=== PATIENT | male | born 1945 | race Caucasian/White ===

== ENCOUNTER → 2016-04-20 | Outpatient (CLI) | payer OTHER, MEDICARE ==
--- NOTE | 2016-04-20 14:01 | MR ---
MRI of the Left Shoulder History: Left shoulder reconstruction with rotator cuff tendon repair. Shoulder pain. Technique: Axial proton density, oblique coronal, and sagittal T1 and T2 sequences were acquired. Findings: Postsurgical changes of a rotator cuff tendon reconstruction are identified with metallic s uture anchors present in the greater tuberosity. There is a recurrent full-thickness rotator cuff ten don tear involving the distal fibers of supraspinatus tendon proximal to the stump reconstruction. Th is tear measures 15 mm AP dimensions and is retracted x 15 mm and is located just past the myotendino us junction and proximal to the intact distal fibers of the reconstruction at the greater tuberosity. A little more posteriorly, fusiform infraspinatus tendinosis is present with mild undersurface parti al tear and fluid tracking proximally toward the myotendinous junction where an intramuscular cyst is present. Subscapularis is markedly thinned distally compatible with high-grade partial tear. There is also sub luxation of a diseased long head biceps tendon out of the bicipital tubercle into the subscapularis p artial defect, the biceps tendon perched on the bicipital tubercle. Marked biceps tendinosis. Teres m inor is intact. No displaced glenoid labral tear. Periarticular cartilage of the glenohumeral joint is intact. Acromioclavicular joint is mildly degenerative with capsular thickening and edema superiorly. Impressions 1. Status post rotator cuff tendon reconstruction. There is evidence of a recurrent full-thickness te ar of the distal fibers of supraspinatus proximal to the greater tuberosity reconstruction, measuring 15 x 15 mm. 2. Fusiform infraspinatus tendinosis with mild undersurface partial tear and intramuscular cyst proxi judd. 3. High-grade partial tear of subscapularis, associated with subluxation of a diseased long head hermelinda ps tendon on to the bicipital tubercle through this partial subscapularis defect.
== END ==
LOC: FIMAGING 09:04
PROVIDERS: ATTEND Orthopaedic Surgery
DX: M75.102 Unspecified rotator cuff tear or rupture of left shoulder, not specified as traumatic (principal)

== ENCOUNTER → 2016-09-08 | Outpatient (CLI) | payer OTHER, MEDICARE | LOC: FIMAGING 16:15 | PROVIDERS: ATTEND Orthopaedic Surgery | DX: R22.42 Localized swelling, mass and lump, left lower limb (principal) ==

== ENCOUNTER 2017-01-13 15:41 | Observation (INO) | payer OTHER, MEDICARE ==
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
[2017-01-13 16:32] LABS: % IMMATURE GRANULYOCYTES 1.2 % (0.0-1.1); ADD DIFF? NO; ADD MORPH? NO; ADD SCAN? NO; ATYPICAL LYMPHOCYTE FLAG 10 (0-99); FRAGMENT RBC FLAG 0 (0-99); HEMATOCRIT 44.3 % (40.0-51.0); HEMOGLOBIN 15.1 g/dL (13.7-17.5); LEFT SHIFT FLG 10 (0-99); LIPEMIA HEMOLYSIS FLAG 90 (0-99); MEAN CELL HEMOGLOBIN 30.6 pg (27.9-34.1); MEAN CELL HEMOGLOBIN CONCENTR. 34.1 g/dL (32.4-36.7); MEAN CELL VOLUME 89.9 fL (81.5-99.8); MEAN PLATELET VOLUME 10.6 fL (8.7-11.7); PLATELET CLUMPS FLAG 10 (0-99); PLATELET COUNT 171 10^3/uL (150-400); RED BLOOD CELL COUNT 4.93 10^6/uL (4.40-6.38); RED CELL DISTRIBUTION WIDTH 15.9 % (11.5-15.2)
[2017-01-13 16:40] LABS: ANION GAP 18 mEq/L (8-16); CALCIUM 9.9 mg/dL (8.5-10.4); CARBON DIOXIDE 20 mEq/l (22-31); CHLORIDE 99 mEq/L (97-110); GLOMERULAR FILTRATION RATE > 60; GLUCOSE 243 mg/dL (70-100); POTASSIUM 4.1 mEq/L (3.5-5.2); SODIUM 137 mEq/L (134-144)
--- NOTE | 2017-01-13 16:45 | CPEKG ---
Heart Rate: 92 RR Interval: 652 QRSD Interval: 104 QT Interval: 392 QTC Interval: 485 QRS Branford: 63 T Wave Branford: 263 EKG Severity - ABNORMAL ECG - EKG Impression: ATRIAL FIBRILLATION, V-RATE 49-81 EKG Impression: VENTRICULAR BIGEMINY EKG Impression: REPOL ABNRM, PROBABLE ISCHEMIA, DIFFUSE LEADS Electronically Signed By: Sravanthi Sousa 13-Jan-2017 21:53:44
[2017-01-13 16:50] LABS: INR 1.4 (0.83-1.16); PROTIME(PATIENT) 17.1 SEC (12.0-15.0)
[2017-01-13 16:51] LABS: APTT 49.2 SEC (23.0-38.0)
[2017-01-13] MEDS: levETIRAcetam 500 MG TAB PO SCH ×2 (17:17→22:12)
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
[2017-01-13] MEDS ORDERED: HYDROCODONE/APAP 5/325 TAB PO PRN (21:27)
[2017-01-13] MEDS ORDERED: ONDANSETRON 4 MG/2 ML VIAL IVP PRN (21:27)
[2017-01-13] MEDS ORDERED: HYDROmorphONE/DILAUDID 1 MG/ML INJ IVP PRN (21:27)
[2017-01-13] MEDS ORDERED: DIAZEPAM 5 MG TAB PO PRN (21:28)
[2017-01-13] MEDS ORDERED: D5W 1/2 NS W/ 20 KCl/L 1,000 ML IV SCH (21:30)
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
[2017-01-13] MEDS ORDERED: TAMSULOSIN HCL 0.4 MG CAP PO SCH (22:15)
[2017-01-14] MEDS ORDERED: ACETAMINOPHEN 325 MG TAB ONE (04:46)
[2017-01-14 06:15] LABS: ABSOLUTE IMMATURE GRANULOCYTES 0.09 10^3/uL (0.00-0.10); ADD DIFF? NO; ADD MORPH? NO; ADD SCAN? NO; ATYPICAL LYMPHOCYTE FLAG 0 (0-99); FRAGMENT RBC FLAG 0 (0-99); HEMATOCRIT 39.8 % (40.0-51.0); HEMOGLOBIN 13.6 g/dL (13.7-17.5); LEFT SHIFT FLG 10 (0-99); LIPEMIA HEMOLYSIS FLAG 90 (0-99); MEAN CELL HEMOGLOBIN 31.3 pg (27.9-34.1); MEAN CELL HEMOGLOBIN CONCENTR. 34.2 g/dL (32.4-36.7); MEAN CELL VOLUME 91.5 fL (81.5-99.8); PLATELET CLUMPS FLAG 0 (0-99); PLATELET COUNT 150 10^3/uL (150-400); RED BLOOD CELL COUNT 4.35 10^6/uL (4.40-6.38); RED CELL DISTRIBUTION WIDTH 15.9 % (11.5-15.2)
[2017-01-14 06:24] LABS: INR 1.19 (0.83-1.16); PROTIME(PATIENT) 15.1 SEC (12.0-15.0)
[2017-01-14 08:27] VITALS: TEMP 98.1
[2017-01-14] MEDS ORDERED: SAXAGLIPTIN HCL PO SCH (09:00)
[2017-01-14] MEDS ORDERED: PANTOPRAZOLE SODIUM 40 MG TAB PO SCH (09:00)
[2017-01-14] MEDS ORDERED: CHOLECALCIFEROL VIT D3 1,000 UNITS TAB PO SCH (09:00)
[2017-01-14] MEDS ORDERED: ALLOPURINOL 300 MG TAB PO SCH (09:00)
[2017-01-14] MEDS ORDERED: ASPIRIN 81 MG CHEWABLE TAB PO SCH (09:00)
[2017-01-14] MEDS ORDERED: Canagliflozin [Invokana] 300 MG PO SCH (09:00)
[2017-01-14] MEDS ORDERED: LISINOPRIL/HCTZ 20/12.5MG 1 EA TAB PO SCH (09:00)
[2017-01-14] MEDS ORDERED: METFORMIN HCL PO SCH (09:00)
[2017-01-14] MEDS ORDERED: FLU VACC QS 2017-18 (3YR+)/PF 0.5 ML SYR (FLUARIX QUAD) IM ONE (09:01)
[2017-01-14] MEDS: levETIRAcetam 500 MG TAB PO SCH (09:27)
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
--- NOTE | 2017-01-14 11:49 | ASMTCMCOM ---
CM Note CM Note Notes: Chart reviewed. Patient discussed in rounds, Per OT okay to dc home to the care of family. PT pending. No current needs identified. CM available should needs arise. Date Signed: 01/14/2017 11:48 AM Electronically Signed By:Alejandra Plunkett RN
[2017-01-14 12:26] VITALS: BP 134/87; PULSE 73; RESP 20; O2SAT 95
[2017-01-14] MEDS ORDERED: EZETIMIBE 10 MG TAB PO SCH (21:00)
[2017-01-14] MEDS ORDERED: DULoxetine 30 MG CAP PO SCH (21:00)
[2017-01-14] MEDS ORDERED: ATORVASTATIN CALCIUM 20 MG TAB PO SCH (21:00)
[2017-01-14] MEDS ORDERED: GABAPENTIN 300 MG CAP PO SCH (21:00)
[2017-01-14] MEDS ORDERED: TEMAZEPAM 15 MG CAP PO SCH (21:00)
[2017-01-14] MEDS ORDERED: Ibuprofen/Diphenhydramine Cit [Advil Pm Caplet] PO SCH (21:00)
== END 2017-01-14 14:29 | disposition home or self-care (01) ==
LOC: EDUNIT# → INTOOBSV 16:29 → UNDOADMOB 16:29 → F2N 19:35 → UNDODISOB 01-14 14:29
PROVIDERS: ADMIT Surgery; ATTEND Surgery
DX: S06.5X0A Traumatic subdural hemorrhage without loss of consciousness, initial encounter (principal); S00.01XA Abrasion of scalp, initial encounter; V00.831A Fall from motorized mobility scooter, initial encounter; Y92.513 Shop (commercial) as the place of occurrence of the external cause; I48.91 Unspecified atrial fibrillation; Y93.89 Activity, other specified; M54.2 Cervicalgia; M48.02 Spinal stenosis, cervical region; G62.9 Polyneuropathy, unspecified; I10 Essential (primary) hypertension; Z79.82 Long term (current) use of aspirin; Z79.01 Long term (current) use of anticoagulants; Z23 Encounter for immunization; Z98.1 Arthrodesis status; Z95.1 Presence of aortocoronary bypass graft; Z96.643 Presence of artificial hip joint, bilateral
CPT/HCPCS: 70450; 71010; 72125; 72141; 90471; 92523; 93005; 97161; 97165; G0378; G8978; G8979; G8980; G8987; G8988; G8989; G9168; G9169; G9170; G0008; G0390

== ENCOUNTER 2017-05-23 20:05 | Emergency (ER) | payer OTHER, MEDICARE ==
[2017-05-23 20:13] VITALS: RESP 18
[2017-05-23] MEDS ORDERED: NS 1,000 ML IV ONE (20:51)
--- NOTE | 2017-05-23 20:53 | EDPHY ---
H & P Stated Complaint: blood in urine for 2 days Time Seen by Provider: 05/23/17 20:43 HPI/ROS: CHIEF COMPLAINT: Atrial HISTORY OF PRESENT ILLNESS: Patient is a 71-year-old man with a history of kidney stones well as prostatic hypertrophy on Pradaxa for history of atrial fibrillation status post 2 vessel bypass several years ago who comes to the emergency department complaining of hematuria. He states that he had right flank pain earlier today that felt similar to previous kidney stones. He then developed hematuria. His pain however has resolved. He has not had a fever. No dysuria. No nausea vomiting. He states that he now feels fine except that his urine is pink. He was wondering if he should take his Pradaxa tonight. He has required lithotripsy in the past. REVIEW OF SYSTEMS: Constitutional: denies: chills, fever, recent illness, recent injury EENTM: denies: blurred vision, double vision, nose congestion Respiratory: denies: cough, shortness of breath Cardiac: denies: chest pain, irregular heart rate, lightheadedness, palpitations Gastrointestinal/Abdominal: denies: abdominal pain, diarrhea, nausea, vomiting, blood streaked stools Genitourinary: See HPI Musculoskeletal: denies: joint pain, muscle pain Skin: denies: lesions, rash, jaundice, bruising Neurological: denies: headache, numbness, paresthesia, tingling, dizziness, weakness Hematologic/Lymphatic: denies: blood clots, easy bleeding, easy bruising Immunologic/allergic: denies: HIV/AIDS, transplant EXAM: GENERAL: Well-appearing, obese and in no acute distress. HEAD: Atraumatic, normocephalic. EYES: Pupils equal round and reactive to light, extraocular movements intact, sclera anicteric, conjunctiva are normal. ENT: TMs normal, nares patent, oropharynx clear without exudates. Moist mucous membranes. NECK: Normal range of motion, supple without lymphadenopathy or JVD. LUNGS: Breath sounds clear to auscultation bilaterally and equal. No wheezes rales or rhonchi. HEART: Regular rate and rhythm without murmurs, rubs or gallops. ABDOMEN: Soft, nontender, normoactive bowel sounds. No guarding, no rebound. No masses appreciated. BACK: No CVA tenderness, no spinal tenderness, step-offs or deformities EXTREMITIES: Normal range of motion, no pitting or edema. No clubbing or cyanosis. NEUROLOGICAL: Cranial nerves II through XII grossly intact. Normal speech, normal gait. 5/5 strength, normal movement in all extremities, normal sensation PSYCH: Normal mood, normal affect. SKIN: Warm, dry, normal turgor, no visible rashes or lesions. Source: Patient Exam Limitations: No limitations - Personal History Current Tetanus/Diphtheria Vaccine: Yes Current Tetanus Diphtheria and Acellular Pertussis (TDAP): Yes - Medical/Surgical History Hx Asthma: No Hx Chronic Respiratory Disease: No Hx Diabetes: Yes Hx Cardiac Disease: Yes Hx Renal Disease: No Hx Cirrhosis: No Hx Alcoholism: No Hx HIV/AIDS: No Hx Splenectomy or Spleen Trauma: No Other PMH: cardiac bypass, mansi hip replacement, knee replace, enzo, kidney stones, hernia, three bones removed from r foot, dm, htn, pradaxa blood for a.fib., back fusion - Family History Significant Family History: No pertinent family hx - Social History Smoking Status: Never smoked Alcohol Use: Sober Drug Use: None Constitutional: Initial Vital Signs Temperature (C) 36.3 C 05/23/17 20:08 Heart Rate 55 L 05/23/17 20:08 Respiratory Rate 18 05/23/17 20:08 Blood Pressure 178/72 H 05/23/17 20:08 O2 Sat (%) 93 05/23/17 20:08 O2 Delivery Mode Nasal Cannula O2 (L/minute) 2 Allergies/Adverse Reactions: No Known Allergies Allergy (Verified 05/23/17 20:13) Home Medications: Medication Instructions Recorded Allopurinol [Allopurinol 300 MG 300 mg PO DAILY 01/13/17 (RX)] Atorvastatin Calcium [Lipitor 20 20 mg PO HS 01/13/17 mg (*)] Cholecalciferol Vit D3 [Vitamin D3 1,000 units PO DAILY 01/13/17 (*)] Duloxetine HCl 30 mg PO HS 01/13/17 Ezetimibe [Zetia 10 MG (*)] 10 mg PO HS 01/13/17 Gabapentin [Neurontin 300 MG (*)] 600 mg PO HS 01/13/17 Hydrocodone/Acetaminophen [[place] 1 each PO Q4 PRN 01/13/17 5/325 (*)] Ibuprofen/Diphenhydramine Cit 1 each PO HS 01/13/17 [Advil Pm Caplet] Insulin Detemir [Levemir] 26 unit SQ HS 01/13/17 Lisinopril/Hctz 20/12.5MG 1 ea PO DAILY 01/13/17 [Zestoretic/Prinzide 20/12.5MG (*)] Omeprazole [Prilosec 20 mg] 20 mg PO DAILY 01/13/17 Saxagliptin HCl/Metformin HCl 1 each PO BID 01/13/17 [Kombiglyze Xr 2.5-1,000 mg Tab] Tamsulosin HCl [Flomax 0.4 MG (*)] 0.4 mg PO HS 01/13/17 Temazepam 30 mg PO HS 01/13/17 levETIRAcetam [Keppra 500 mg (*)] 750 mg PO BID 7 Days #14 tab 01/14/17 Amoxicillin 05/23/17 Aspirin 05/23/17 Cialis 05/23/17 Diltiazem 05/23/17 Furosemide 05/23/17 Medical Decision Making - Diagnostics Imaging: Discussed imaging studies w/ computer artist Radiologist ED Course/Re-evaluation: 10:00 p.m. we discussed his CT and lab results which are reassuring. Patient and were reassured. He remains pain free. We discussed follow-up as well as indicated returning. Differential Diagnosis: Partial list of the Differential diagnosis considered include but were not limited to; kidney stone, urinary tract infection and although unlikely based on the history and physical exam, I also considered pyelonephritis, sepsis, aneurysm, dissection. I discussed these differential diagnoses and the plan with the patient as well as the usual and expected course. The patient understands that the diagnosis is provisional and that in medicine we are not always correct and that further workup is often warranted. Usual and customary warnings were given. All of the patient's questions were answered. The patient was instructed to return to the emergency department should the symptoms at all worsen or return, otherwise to followup with the physician as we discussed. - Data Points Laboratory Results: Laboratory Results 05/23/17 21:10 05/23/17 21:10 05/23/17 05/23/17 05/23/17 21:10 21:10 20:20 WBC 8.52 10^3/uL 10^3/uL (3.80-9.50) RBC 4.59 10^6/uL 10^6/uL (4.40-6.38) Hgb 13.5 g/dL L g/dL (13.7-17.5) Hct 40.2 % % (40.0-51.0) MCV 87.6 fL fL (81.5-99.8) MCH 29.4 pg pg (27.9-34.1) MCHC 33.6 g/dL g/dL (32.4-36.7) RDW 16.6 % H % (11.5-15.2) Plt Count 180 10^3/uL 10^3/uL (150-400) MPV 10.3 fL fL (8.7-11.7) Neut % (Auto) 72.7 % % (39.3-74.2) Lymph % (Auto) 17.4 % % (15.0-45.0) [place] % (Auto) 7.3 % % (4.5-13.0) Eos % (Auto) 1.4 % % (0.6-7.6) Baso % (Auto) 0.5 % % (0.3-1.7) Nucleat RBC Rel Count 0.0 % % (0.0-0.2) Absolute Neuts (auto) 6.20 10^3/uL 10^3/uL (1.70-6.50) Absolute Lymphs (auto) 1.48 10^3/uL 10^3/uL (1.00-3.00) Absolute Monos (auto) 0.62 10^3/uL 10^3/uL (0.30-0.80) Absolute Eos (auto) 0.12 10^3/uL 10^3/uL (0.03-0.40) Absolute Basos (auto) 0.04 10^3/uL 10^3/uL (0.02-0.10) Absolute Nucleated RBC 0.00 10^3/uL 10^3/uL (0-0.01) Immature Gran % 0.7 % % (0.0-1.1) Immature Gran # 0.06 10^3/uL 10^3/uL (0.00-0.10) Sodium 140 mEq/L mEq/L (135-145) Potassium 3.1 mEq/L L mEq/L (3.5-5.2) Chloride 98 mEq/L mEq/L (97-110) Carbon Dioxide 29 mEq/l mEq/l (22-31) Anion Gap 13 mEq/L mEq/L (8-16) BUN 12 mg/dL mg/dL (7-23) Creatinine 0.7 mg/dL mg/dL (0.7-1.3) Estimated GFR > 60 Glucose 122 mg/dL H mg/dL (70-100) Calcium 9.5 mg/dL mg/dL (8.5-10.4) Total Bilirubin 1.1 mg/dL mg/dL (0.1-1.4) Conjugated Bilirubin 0.2 mg/dL mg/dL (0.0-0.5) Unconjugated Bilirubin 0.9 mg/dL mg/dL (0.0-1.1) AST 14 IU/L L IU/L (17-59) ALT 30 IU/L IU/L (21-72) Alkaline Phosphatase 71 IU/L IU/L (38-126) Total Protein 6.6 g/dL g/dL (6.3-8.2) Albumin 3.9 g/dL g/dL (3.5-5.0) Lipase 32 IU/L IU/L (23-300) Urine Color YELLOW Urine Appearance HAZY Urine pH 6.0 (5.0-7.5) Ur Specific [place] 1.009 (1.002-1.030) Urine Protein 2+ H (NEGATIVE) Urine Ketones NEGATIVE (NEGATIVE) Urine Blood 3+ H (NEGATIVE) Urine Nitrate NEGATIVE (NEGATIVE) Urine Bilirubin NEGATIVE (NEGATIVE) Urine Urobilinogen NEGATIVE EU EU (0.2-1.0) Ur Leukocyte Esterase NEGATIVE (NEGATIVE) Urine RBC 50-182 /hpf H /hpf (0-3) Urine WBC 1-3 /hpf /hpf (0-3) Ur Epithelial Cells NONE SEEN /lpf /lpf (NONE-1+) Urine Mucus TRACE /lpf /lpf (NONE-1+) Urine Glucose NEGATIVE (NEGATIVE) Medications Given: Discontinued Medications Sodium Chloride (Ns) 1,000 mls @ 0 mls/hr IV EDNOW ONE; Wide Open PRN Reason: Protocol Stop: 05/23/17 20:52 Last Admin: 05/23/17 21:09 Dose: 1,000 mls Departure - Departure Disposition: Home, Routine, Self-Care Clinical Impression: Calculus of right kidney Condition: Fair Instructions: Kidney Stones (ED) Referrals: WILLIAMS JONAS [Other] - As per Instructions
[2017-05-23 21:28] LABS: PLATELET COUNT 180 10^3/uL (150-400)
[2017-05-23 22:12] VITALS: BP 159/78; PULSE 46; TEMP 98.1; O2SAT 97
== END 2017-05-23 22:22 | disposition home or self-care (01) ==
DX: N20.0 Calculus of kidney (principal); E11.9 Type 2 diabetes mellitus without complications; I10 Essential (primary) hypertension; E86.9 Volume depletion, unspecified; Z79.4 Long term (current) use of insulin; Z79.82 Long term (current) use of aspirin

== ENCOUNTER → 2017-07-29 | Outpatient (CLI) | payer OTHER, MEDICARE ==
[~2017-07-29] MED LIST: IOPAMIDOL (ISOVUE-300) 100 ML BTL ONE
== END ==
LOC: FIMAGING 13:16
DX: I51.7 Cardiomegaly (principal); J90 Pleural effusion, not elsewhere classified; N28.9 Disorder of kidney and ureter, unspecified; Z90.49 Acquired absence of other specified parts of digestive tract; Z95.5 Presence of coronary angioplasty implant and graft; Z95.1 Presence of aortocoronary bypass graft; R91.8 Other nonspecific abnormal finding of lung field
CPT/HCPCS: 71046; 74178; Q9967

== ENCOUNTER 2017-09-29 10:04 | Emergency (ER) | payer OTHER, MEDICARE ==
--- NOTE | 2017-09-29 10:31 | EDPHY ---
H & P Stated Complaint: L hip pain faLL YEST Time Seen by Provider: 09/29/17 10:16 HPI/ROS: CHIEF COMPLAINT: Left hip pain, head injury post mechanical fall HISTORY OF PRESENT ILLNESS: 71-year-old male arrives via private vehicle with his . He is complaining of left hip pain and inability to bear full weight after he woke up to use the restroom yesterday at 4:00 a.m.. Because of the darkness in his room he leaned against what he thought was a wall however is a door and he fell onto his left side. He also impacted the right side of his head with no loss of consciousness. His was next to him, he was able to stand up and had no prolonged periods of immobility on the floor. He describes this as a mechanical non syncopal episode. He has a baseline unsteady gait, ambulates with a cane, has been able to ambulate albeit with significant pain to the left hip. Denies: Midline C-spine pain, peripheral paresthesia, weakness, numbness, chest pain or trauma, back pain or trauma, abdominal pain or trauma, dyspnea. Last oral intake was 7:00 a.m.today consisting of toast and coffee PRIMARY CARE PROVIDER: Dr. Anh Orozco in [place], [place] REVIEW OF SYSTEMS: A ten point review of systems was performed and is negative with the exception of the items mentioned in the HPI PAST MEDICAL/SURGICAL HISTORY: Daily Pradaxa secondary to atrial fibrillation history. BPH. Multiple orthopedic surgeries all performed in [facility]. SOCIAL HISTORY: . denies alcohol use at time of incident PHYSICAL EXAM 1) GENERAL: Well-developed, well-nourished, alert and oriented. Appears to be in no acute distress. Answering questions appropriately. Smiling. 2) HEAD: Normocephalic, no hematoma. There is faint erythema to the right temporoparietal region with no depression. 3) HEENT: Pupils equal, round, reactive to light bilaterally. Negative [place]. Nasopharynx, oropharynx, clear. No deformity or angulation of nose. No septal hematoma. No rhinorrhea. No oral trauma. Ears bilaterally with normal tympanic membranes. No hemotympanum. No fluid or blood in the external auditory canal. No raccoon eyes. No Rodas sign. Teeth are normally aligned with no gross malocclusion, TMJ bilaterally nontender, facial bones nontender including the zygomatic arch, maxilla mandible. 4) NECK: No cervical collar is on. Posterior cervical spine is nontender, no stepoff, no effusion. Full range of motion which does not elicit any midline cervical spine pain, no posterior midline tenderness, no step-off. 5) LUNGS: Clear to auscultation bilaterally, no wheezes, no rhonchi, no retractions. No obvious signs of trauma. No chest wall pain. No flaring, no grunting. Moving symmetrically. No crepitus. 6) HEART: Regular rate and rhythm, 7) ABDOMEN: No guarding, no rebound, no focal tenderness, no peritoneal signs, no signs of trauma, no ecchymosis 8) MUSCULOSKELETAL: Left lower extremity: Ecchymosis, tenderness to the left greater trochanteric region. No shortening or malrotation. Soft compartments. Left pretibial abrasion with no underlying osseous discomfort and soft compartments. Distal DP PT pulses present and brisk. Otherwise, Moving all extremities, no focal areas of tenderness, no obvious trauma. 9) BACK: No midline vertebral tenderness, no fluctuance, no step-off, no obvious trauma, no visual or palpable abnormality. 10) SKIN: No laceration. DIFFERENTIAL DIAGNOSIS: Not necessarily in any particular order, my differential diagnosis includes, but is not limited to, concussion, skull fracture, intraparenchymal contusion, subarachnoid, subdural and epidural hematoma, hip fracture, dislocation. The patient understands that this diagnosis is provisional and can never be 100% accurate. - Personal History Current Tetanus/Diphtheria Vaccine: Unsure Current Tetanus Diphtheria and Acellular Pertussis (TDAP): Unsure - Medical/Surgical History Hx Asthma: No Hx Chronic Respiratory Disease: No Hx Diabetes: Yes Hx Cardiac Disease: Yes Hx Renal Disease: No Hx Cirrhosis: No Hx Alcoholism: No Hx HIV/AIDS: No Hx Splenectomy or Spleen Trauma: No Other PMH: cardiac bypass, mansi hip replacement, knee replace, enzo, kidney stones, hernia, three bones removed from r foot, dm, htn, pradaxa blood for a.fib., back fusion - Social History Smoking Status: Never smoked Constitutional: Initial Vital Signs Temperature (C) 36.6 C 09/29/17 10:08 Heart Rate 75 09/29/17 10:08 Respiratory Rate 16 09/29/17 10:08 Blood Pressure 136/67 H 09/29/17 10:08 O2 Sat (%) 91 L 09/29/17 10:08 O2 Delivery Mode Nasal Cannula O2 (L/minute) 2 Allergies/Adverse Reactions: No Known Allergies Allergy (Verified 05/23/17 20:13) Home Medications: Medication Instructions Recorded Allopurinol [Allopurinol 300 MG 300 mg PO DAILY 01/13/17 (RX)] Atorvastatin Calcium [Lipitor 20 20 mg PO HS 01/13/17 mg (*)] Ezetimibe [Zetia 10 MG (*)] 10 mg PO HS 01/13/17 Gabapentin [Neurontin 300 MG (*)] 600 mg PO HS 01/13/17 Hydrocodone/Acetaminophen [[place] 1 each PO Q4 PRN 01/13/17 5/325 (*)] Ibuprofen/Diphenhydramine Cit 1 each PO HS PRN 01/13/17 [Advil Pm Caplet] Insulin Detemir [Levemir] 20 unit SQ HS 01/13/17 Lisinopril/Hctz 20/12.5MG 20 mg PO DAILY 01/13/17 [Zestoretic/Prinzide 20/12.5MG (*)] Omeprazole [Prilosec 20 mg] 20 mg PO DAILY 01/13/17 Saxagliptin HCl/Metformin HCl 1 each PO BID 01/13/17 [Kombiglyze Xr 2.5-1,000 mg Tab] Tamsulosin HCl [Flomax 0.4 MG (*)] 0.4 mg PO HS 01/13/17 Temazepam 30 mg PO HS 01/13/17 Amoxicillin 2,000 mg PO PRN 05/23/17 Aspirin 81 mg PO DAILY 05/23/17 Diltiazem 120 mg PO DAILY 05/23/17 Furosemide 20 mg PO DAILY 05/23/17 Humalog 5 - 10 units SQ TID 09/26/17 Pradaxa 150 mg PO DAILY 09/26/17 Medical Decision Making - Diagnostics Imaging Results: Imaging Impressions Head CT 09/29/17 10:28 Impression: 1. Stable mild to moderate atrophy. 2. No hemorrhage, mass effect, or definite acute peripheral infarct. 3. Stable mild nonspecific hypodensities in the white matter of bilateral cerebral hemispheres. Differential diagnosis includes microvascular ischemic disease, post-infectious/post-inflammatory sequela, atypical demyelinating disease, or migraine-related sequela. Small white matter lacunar infarcts may also have this appearance. 4. Resolved subdural hematoma collections previously identified along the falx and tentorium on the left. If symptoms worsen, additional imaging may be necessary. Findings discussed with Jasson Ballard PAC at 11:20 hour, 09/29/2017. Pelvis CT 09/29/17 10:54 Impression: 1. Bilateral total hip arthroplasties without fracture or dislocation. 2. No evidence of pelvic or proximal femur fractures. 3. No sacral fracture. 4. No focal hematoma. Findings and recommendations discussed with Emergency Department physician, Milan Ballard PA-C at 1128 hours on September 29, 2017. Final report concurs with initial preliminary interpretation. ED Course/Re-evaluation: 10:30 a.m.: Old medical records reviewed by myself. Discussed case with secondary supervising physician Dr. Virgilio Clay in the ER. Plan will be CT imaging of the head. Head CT ordered in this patient for trauma for the following indication: Greater than 65 years old, anticoagulated. Will obtain x -ray of the left hip. Last oral intake at 7:00 a.m. 11:40 a.m.: Re-evaluation, he was able to stand and ambulate. He feels comfortable being discharged home. I offered admission however he needs states they feel comfortable being discharged. We discussed his negative imaging results. Recommend return to the ER should he develop inability care for himself or any other symptoms that concern him. Departure - Departure Disposition: Home, Routine, Self-Care Clinical Impression: Left hip pain Head injury due to trauma Qualifiers: Encounter type: initial encounter Qualified Code(s): S09.90XA - Unspecified injury of head, initial encounter Condition: Good Instructions: Head Injury (ED), Hip Pain (ED) Additional Instructions: Return to the ER immediately if you experience discoloration, have worsening pain, numbness, tingling, or any other symptoms that concern you. If you received x-rays in the emergency department today, be advised, that ligamentous , tendon, muscular, and other non-bony injury cannot be fully ruled out. Try to keep your affected extremity elevated above the level of your chest, and keep cold packs on the affected area, for the next 48 hours. If you feel at any point you are unable to care for yourself return to the ER. Referrals: Forrest Madrid MD [Medical Doctor] - As per Instructions
[2017-09-29 12:08] VITALS: BP 130/71
== END 2017-09-29 11:50 | disposition home or self-care (01) ==
DX: S09.90XA Unspecified injury of head, initial encounter (principal); S79.912A Unspecified injury of left hip, initial encounter; I10 Essential (primary) hypertension; E11.9 Type 2 diabetes mellitus without complications; Z95.1 Presence of aortocoronary bypass graft; Z79.4 Long term (current) use of insulin; Z79.82 Long term (current) use of aspirin; W01.198A Fall on same level from slipping, tripping and stumbling with subsequent striking against other object, initial encounter

== ENCOUNTER → 2018-02-23 | Outpatient (CLI) | payer OTHER, MEDICARE | LOC: FIMAGING 11:59 | PROVIDERS: ATTEND Physician Assistant Medical | DX: N28.1 Cyst of kidney, acquired (principal); N28.89 Other specified disorders of kidney and ureter; C64.2 Malignant neoplasm of left kidney, except renal pelvis | CPT/HCPCS: 74170; Q9967; 82565-PO ==

== ENCOUNTER 2018-03-31 08:17 | Day surgery (SDC) | payer OTHER, MEDICARE ==
[2018-03-31] MEDS ORDERED: hydrALAZINE 20 MG/ML VIAL IVP PRN (09:10)
[2018-03-31] MEDS ORDERED: NS 1,000 ML IV SCH (09:15)
[2018-03-31 09:22] LABS: PLATELET COUNT 153 10^3/uL (150-400)
[2018-03-31 09:31] LABS: PROTIME(PATIENT) 13.4 SEC (12.0-15.0)
[2018-03-31] MEDS ORDERED: PROPOFOL 200 MG/20 ML VIAL ONE (09:54)
[2018-03-31] MEDS ORDERED: PROPOFOL/EMULSION 500 MG/50 ML BOTTLE IV ONE (09:54)
[2018-03-31] MEDS ORDERED: LIDOCAINE 1% 300 MG/30 ML SDV ONE (10:02)
[2018-03-31] MEDS ORDERED: SUCCINYLCHOLINE CHLORIDE 200 MG/10 ML VIAL ONE (10:03)
[2018-03-31] MEDS ORDERED: ePHEDrine SULFATE 25 MG/5 ML SYR ONE ×2 (10:21)
[2018-03-31] MEDS ORDERED: PHENYLEPHRINE HCL 100 MCG/ML SYR ONE ×2 (10:21)
[2018-03-31] MEDS ORDERED: fentaNYL 100 MCG/2 ML INJ ONE (10:38)
--- NOTE | 2018-03-31 11:56 | PDANEPAE ---
ANE Past Medical History - Cardiovascular History Hx Hypertension: Yes Hx Arrhythmias: Yes Hx Chest Pain: No Hx Coronary Artery / Peripheral Vascular Disease: Yes Hx CHF / Valvular Disease: Yes Hx Palpitations: No Cardiovascular History Comment: Afib - Pulmonary History Hx COPD: No Hx Asthma/Reactive Airway Disease: No Hx Recent Upper Respiratory Infection: No Hx Oxygen in Use at Home: Yes O2 in Use at Home (L/minute): 2L/NC at night. Hx Sleep Apnea: Yes Sleep Apnea Screening Result - Last Documented: Positive - Neurologic History Hx Cerebrovascular Accident: No Hx Seizures: No Hx Dementia: No - Endocrine History Hx Diabetes: Yes Endocrine History Comment: started Insulin shots (Levimir) on 09/26/17 - Renal History Hx Renal Disorders: Yes Renal History Comment: kidney stones. 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 SDH 01/13/2017 resulting in poor balance. - Cancer History Hx Cancer: Yes Cancer History Comment: Skin cancers to nose and Left newberry. "They say that this kidney mass is cancer." - Congenital Disorder History Hx Congenital Disorders: No - GI History Hx Gastrointestinal Disorders: No - Other Health History Other Health History: small scab on left leg newberry at skin cancer removal site. Lower bridge. Missing teeth to both upper and lower mouth. - Chronic Pain History Chronic Pain: Yes - Surgical History Prior Surgeries: CABG 2 vessel 92' [place], Ing. Hernia repair R., bone removed out of R foot., rotator cuff repair bilat., bilat. hip replacement, L. knee replacement, back fusion L 3,4,5 ANE Review of Systems Review of Systems: - Exercise capacity METS (RN): 1 METS ANE Patient History - Allergies Allergies/Adverse Reactions: No Known Allergies Allergy (Verified 05/23/17 20:13) - Home Medications Home Medications: Allopurinol [Allopurinol 300 MG (RX)] 300 mg PO DAILY 01/13/17 [Last Taken 03/30] Atorvastatin Calcium [Lipitor 20 mg (*)] 20 mg PO HS 01/13/17 [Last Taken ] Ezetimibe [Zetia 10 MG (*)] 10 mg PO HS 01/13/17 [Last Taken 03/30/18] Gabapentin [Neurontin 300 MG (*)] 600 mg PO HS PRN 01/13/17 [Last Taken 01/12/17 ] Hydrocodone/Acetaminophen [[place] 5/325 (*)] 1 each PO Q4 PRN 01/13/17 [Last Taken 03/13/18] Ibuprofen/Diphenhydramine Cit [Advil Pm Caplet] 1 each PO HS 01/13/17 [Last Taken 03/30/18] Insulin Detemir [Levemir] 26 unit SQ HS 01/13/17 [Last Taken 03/30/18] Lisinopril/Hctz 20/12.5MG [Zestoretic/Prinzide 20/12.5MG (*)] 20 mg PO DAILY 08/25 [Last Taken 11/09/17] Omeprazole [Prilosec 20 mg] 20 mg PO DAILY 01/13/17 [Last Taken 03/30/18] Saxagliptin HCl/Metformin HCl [Kombiglyze Xr 2.5-1,000 mg Tab] 1 each PO BID 08/25 [Last Taken 03/30/18] Tamsulosin HCl [Flomax 0.4 MG (*)] 0.4 mg PO HS 01/13/17 [Last Taken 03/30/18] Temazepam 30 mg PO HS PRN 01/13/17 [Last Taken 03/30/18] Amoxicillin 2,000 mg PO PRN 05/23/17 [Last Taken Unknown] Aspirin 81 mg PO DAILY 05/23/17 [Last Taken 03/27/18] Furosemide 40 mg PO DAILY 05/23/17 [Last Taken 03/30/18] Pradaxa 150 mg PO BID 09/26/17 [Last Taken 03/27/18] Potassium Chloride 20 meq PO DAILY 03/27/18 [Last Taken 03/30/18] - Smoking Hx Smoking Status: Never smoked - Family Anes Hx Family Hx Anesthesia Complications: none ANE Labs/Vital Signs - Labs Result Diagrams: 03/31/18 09:00 03/31/18 09:00 - Vital Signs Blood Pressure: 142/71 Heart Rate: 37 Respiratory Rate: 16 O2 Sat (%): 94 Height: 181.61 cm Weight: 108.862 kg ANE Physical Exam - Airway Neck exam: decreased ROM Mallampati Score: Class 2 Mouth exam: poor dentition - Pulmonary Pulmonary: no respiratory distress - Cardiovascular Cardiovascular: irregularly irregular - ASA Status ASA Status: III ANE Anesthesia Plan Anesthesia Plan: general endotracheal anesthesia Urgent/Emergent Case: Tejal alvarado completed preop but documented later for safe timely pt care
[2018-03-31] MEDS ORDERED: SUGAMMADEX SODIUM 200 MG/2 ML VIAL IVP ONE (12:15)
[2018-03-31] MEDS ORDERED: ACETAMINOPHEN 325 MG TAB PO PRN (12:29)
[2018-03-31] MEDS ORDERED: OXYCODONE/APAP 5/325 TAB PO PRN (12:29)
[2018-03-31] MEDS ORDERED: ONDANSETRON 4 MG/2 ML VIAL IVP PRN ×2 (12:29→12:47)
--- NOTE | 2018-03-31 12:32 | PDRADPRE ---
Radiology History & Physical Indication for procedure: cancer (Enhancing mass compatible with renal cell carcinoma lower pole left kidney. Plan: CT guided biopsy 18 ga cores followed by BRAYDON. ) Home medications: Allopurinol [Allopurinol 300 MG (RX)] 300 mg PO DAILY 01/13/17 [Last Taken 03/30] Atorvastatin Calcium [Lipitor 20 mg (*)] 20 mg PO HS 01/13/17 [Last Taken ] Ezetimibe [Zetia 10 MG (*)] 10 mg PO HS 01/13/17 [Last Taken 03/30/18] Gabapentin [Neurontin 300 MG (*)] 600 mg PO HS PRN 01/13/17 [Last Taken 01/12/17 ] Hydrocodone/Acetaminophen [[place] 5/325 (*)] 1 each PO Q4 PRN 01/13/17 [Last Taken 03/13/18] Ibuprofen/Diphenhydramine Cit [Advil Pm Caplet] 1 each PO HS 01/13/17 [Last Taken 03/30/18] Insulin Detemir [Levemir] 26 unit SQ HS 01/13/17 [Last Taken 03/30/18] Lisinopril/Hctz 20/12.5MG [Zestoretic/Prinzide 20/12.5MG (*)] 20 mg PO DAILY 08/25 [Last Taken 11/09/17] Omeprazole [Prilosec 20 mg] 20 mg PO DAILY 01/13/17 [Last Taken 03/30/18] Saxagliptin HCl/Metformin HCl [Kombiglyze Xr 2.5-1,000 mg Tab] 1 each PO BID 08/25 [Last Taken 03/30/18] Tamsulosin HCl [Flomax 0.4 MG (*)] 0.4 mg PO HS 01/13/17 [Last Taken 03/30/18] Temazepam 30 mg PO HS PRN 01/13/17 [Last Taken 03/30/18] Amoxicillin 2,000 mg PO PRN 05/23/17 [Last Taken Unknown] Aspirin 81 mg PO DAILY 05/23/17 [Last Taken 03/27/18] Furosemide 40 mg PO DAILY 05/23/17 [Last Taken 03/30/18] Pradaxa 150 mg PO BID 09/26/17 [Last Taken 03/27/18] Potassium Chloride 20 meq PO DAILY 03/27/18 [Last Taken 03/30/18] Allergies/Adverse Reactions: No Known Allergies Allergy (Verified 05/23/17 20:13) Mental status: A&Ox3 Heart exam: regular rate and rhythm Lungs exam: clear to auscultation Mallampati Score: Class 2
--- NOTE | 2018-03-31 12:34 | PDRADPN ---
Radiology Procedure Note Date of Procedure: 03/31/18 Radiologist: Jose Parra Anesthesia: GET(General Endotracheal) Pre-op Diagnosis: Enhancing mass compatible with renal cell carcinoma lower pole left kidney. Post-op Diagnosis: Enhancing mass compatible with renal cell carcinoma lower pole left kidney. Indication: RCC Procedure: CT guided biopsy and MWA Finding(s): Lower pole left renal mass 18 ga core biopsy. MWA with tract cauterization. No hemorrhage. Please see separately dictated radiology report for further details. Inf/Abcess present in the surg proc area at time of surgery?: No
[2018-03-31] MEDS ORDERED: LABETALOL HCL 5 MG/ML 20 ML MDV IVP PRN (12:47)
[2018-03-31] MEDS ORDERED: fentaNYL 100 MCG/2 ML INJ IVP PRN (12:47)
[2018-03-31] MEDS ORDERED: NALOXONE HCL 0.4 MG/ML INJ IVP PRN (12:47)
--- NOTE | 2018-03-31 12:47 | POSTANESTH ---
Post Anesthetic Evaluation Cardiovascular Status: Similar to Pre-Op Cond Respiratory Status: Similar to Pre-op Cond. Level of Consciousness/Mental Status: Can Participate in Eval Pain Control: Adequate, Prn Tx Ordered Nausea/Vomiting Control: Adequate, Prn Tx Ordered Complications Possibly Related to Anesthesia: None Noted
[2018-03-31] MEDS ORDERED: HYDROCODONE/APAP 5/325 TAB PO PRN (13:46)
[2018-03-31] MEDS ORDERED: HYDROCODONE/APAP 5/325 TAB ONE (13:49)
[2018-03-31 15:42] VITALS: BP 133/72
[2018-03-31] MEDS ORDERED: LIDOCAINE 2% 2 ML INJ ONE (16:56)
== END 2018-03-31 15:38 | disposition home or self-care (01) ==
LOC: FIMAGING 08:17
PROVIDERS: ATTEND Radiology Vascular & Interventional Radiology
PROC: 0TB13ZX Excision of Left Kidney, Percutaneous Approach, Diagnostic (ICD-10-PCS; principal; 2018-03-31 12:34)
PROC: 0T513ZZ Destruction of Left Kidney, Percutaneous Approach (ICD-10-PCS; principal; 2018-03-31 12:34)
PROC: BT221ZZ Computerized Tomography (CT Scan) of Left Kidney using Low Osmolar Contrast (ICD-10-PCS; principal; 2018-03-31 12:34)
DX: C64.2 Malignant neoplasm of left kidney, except renal pelvis (principal); N28.1 Cyst of kidney, acquired; I50.9 Heart failure, unspecified; E11.9 Type 2 diabetes mellitus without complications; Z95.1 Presence of aortocoronary bypass graft; Z87.442 Personal history of urinary calculi; Z79.4 Long term (current) use of insulin
CPT/HCPCS: J0330; J2370; J2704; J3010

== ENCOUNTER → 2018-05-01 | Outpatient (CLI) | payer OTHER, MEDICARE ==
[~2018-05-01] MED LIST changes: +IOPAMIDOL (ISOVUE 370) 100 ML BTL IV ONE; -IOPAMIDOL (ISOVUE-300) 100 ML BTL ONE
== END ==
LOC: FIMAGING 10:34
PROVIDERS: ATTEND Specialist
DX: Z09 Encounter for follow-up examination after completed treatment for conditions other than malignant neoplasm (principal); Z98.890 Other specified postprocedural states
CPT/HCPCS: 74170; Q9967

== ENCOUNTER → 2018-08-17 | Outpatient (CLI) | payer OTHER, MEDICARE ==
[~2018-08-17] MED LIST changes: -IOPAMIDOL (ISOVUE 370) 100 ML BTL IV ONE; +IOPAMIDOL (ISOVUE-300) 100 ML BTL ONE
== END ==
LOC: FIMAGING 10:06
PROVIDERS: ATTEND Specialist
DX: N28.89 Other specified disorders of kidney and ureter (principal); M51.35 Other intervertebral disc degeneration, thoracolumbar region
CPT/HCPCS: 74170; Q9967; 82565-PO